=== PATIENT | female | born 1995 | race African-American/Black ===

== ENCOUNTER 2021-12-11 07:59 | Emergency (ER) | payer BC, SELFPAY ==
[2021-12-12 13:07] LABS: SARS-CoV-2 NAA Not Detected (Not Detected)
== END 2021-12-11 08:42 | disposition home or self-care (01) ==
LOC: JVIRT 07:59
DX: Z20.822 Contact with and (suspected) exposure to COVID-19 (principal)
CPT/HCPCS: 99283-25; C9803; U0003; U0005